=== PATIENT | male | born 1975 | race Caucasian/White ===

== ENCOUNTER 2016-12-14 15:03 | Emergency (ER) | payer OTHER, BC ==
[2016-12-14 15:33] VITALS: BP 123/82; PULSE 69; TEMP 98.2; BMI 27.5
--- NOTE | 2016-12-14 16:21 | PDOC ---
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 There is a range room/ storage room that is being remodeled with extensive re- construction. There is a need to guard the room while outside contractors are present. During this time of construction, ranging from 6-3 months, patient used no respiratory or eye protection. Cleaning company today arrived who stated debris appeared to be consistent with an aspestos. Asbestos Was not confirmed by laboratory analysis. Patient denies any respiratory complaints, denies any skin changes, denies any eye burning or any runny nose. Is asymptomatic and here for documentation of potential exposure 12/14/16 17:08 Past History - Travel Traveled outside of the country in the last 30 days: No Close contact w/someone who was outside of country & ill: No - Past Medical History Allergies/Adverse Reactions: Allergies No Known Allergies Allergy (Verified 12/14/16 15:33) Home Medications: Ambulatory Orders NK [No Known Home Medication] 12/14/16 General: Yes: no pertinent history Surgical History: Yes: No Surgical History - Family History Significant Family History: Yes: no pertinent family hx - Social History Smoking Status: Never smoked Review of Systems - Review of Systems Able to Perform ROS?: Yes Is the patient limited [place] proficient: Yes Constitutional: Yes: See HPI. No: Symptoms Reported, Chills, Fever, Malaise HEENTM: Yes: See HPI. No: Symptoms Reported, Eye Pain, Blurred Vision, Tearing Respiratory: Yes: See HPI. No: Symptoms reported, Cough, Shortness of Breath, Wheezing ABD/GI: No: Symptoms Reported All Other Systems: Reviewed and Negative *Physical Exam - Vital Signs Last Vital Signs Temp Pulse Resp BP Pulse Ox 98.2 F 69 17 123/82 98 12/14/16 15:30 12/14/16 15:30 12/14/16 15:30 12/14/16 15:30 12/14/16 15:30 - Physical Exam General Appearance: Yes: Nourished, Appropriately Dressed. No: Apparent Distress HEENT: positive: NOHELIA, Normal ENT Inspection, TMs Normal, Pharynx Normal Neck: positive: Supple Respiratory/Chest: positive: Lungs Clear, Normal Breath Sounds. negative: Rhonchi, Wheezing Gastrointestinal/Abdominal: positive: Soft Extremity: positive: Normal Capillary Refill, Normal Inspection Integumentary: positive: Normal Color, Dry, Warm Neurologic: positive: registered sales assistant II-XII NML intact, Fully Oriented, Alert, Normal Mood/ Affect, Normal Response, Motor Strength 5/5 Progress Note - Progress Note Progress Note: Potential aspestos Exposure, patient asymptomatic will follow-up with occupational health as needed *DC/Admit/Observation/Transfer Diagnosis at time of Disposition: Suspected exposure to asbestos - Discharge Dispostion Disposition: HOME Condition at time of disposition: Stable Admit: No - Referrals Referrals: STAFF,NOT ON [Primary Care Provider] - - Patient Instructions Additional Instructions: Rest Drink lots fluids. See Occupational Health for followup - Post Discharge Activity Work/School Note: Back to Work
== END 2016-12-14 17:12 | disposition home or self-care (01) ==
LOC: SUPCPDRO 15:03 → JERFT 15:03
DX: Z77.090 Contact with and (suspected) exposure to asbestos (principal); X58.XXXA Exposure to other specified factors, initial encounter; Y93.89 Activity, other specified; Y92.61 Building [any] under construction as the place of occurrence of the external cause; Y99.0 Civilian activity done for income or pay
CPT/HCPCS: 99281-25